=== PATIENT | female | born 1985 | race Hispanic/Latino ===

== ENCOUNTER 2018-09-25 22:47 | Emergency (ER) | payer BC, OTHER ==
[2018-09-26 05:00] VITALS: BP 112/81; PULSE 82
--- NOTE | 2018-09-26 08:47 | OBHP ---
Datetime: 09/25/2018 23:42 IP Adm Impression: Term, intrauterine IP Admit Plan: Observation/Evaluation; Discharge home Admit Comment, IP Provider: Pt is a 33 yo F EGA of 40 wks FREDDY 09/25/18 based on LMP 12/19/17 and 7wk U/S done 02/10/18. Pt is here for contractions since 7pm, 3 minutes apart, lasts 30 seconds. Last n ight had brown tinged toilet paper when wiping. Denies vaginal bleeding or LOF. Reports good mo vement. Denies fever, chills, headaches, blurry vision, SOB, chest pain, dizziness, diarrhea, constip ation, or dysuria. All other systems reviewed and negative Provider: Dr. Steiner PMHx: Denies Meds: PNV, antibiotic eye drops for chalazion TID unknown name for 1 month FMHx: Mom and Dad- HTN Allergies: NKDA SurgHx: Denies SOCHx: Denies EtOH, tobacco, or drug use OBGYN: No complications with , No DM or HTN in pregancy, Last pap 03/04/18 NILM No hx of STD's Labs: Rubella- unknown, ABO: O +, AB neg, GBS neg, Hep B neg, Hep C neg, HIV neg, RPR non reactive , GC/CHL neg, TDAP 07/16/18 Assessment Pt is a 33 yo F EGA of 40 wks FREDDY 09/25/18 based on LMP 12/19/17 and 7wk U/S done 02/10/18. Pt is here for contractions since 7pm. Plan: -Observe in [place] -Monitor contractions -Monitor heart tracing 140's, moderate variability, 15x15 accelerations, no decels -Monitor VS- BP 125/86 Case reveiwed and discussed with attending Rohini Melo PGY1 Addendum: I saw and examined patient at presentation. No evidence of labor at this time. heart quinten ng category 1. Patient discharged home with labor precautions. [place] Extremities - PN: Normal Lungs - PN: Normal Heart - PN: Normal HEENT - PN: Normal General - PN: Normal FHR - Baseline A Provider: 130 Comments, ACOG Physical Exam: GEN: NAD HEENT: NCAT, EOMI RESP: CTA, no wheezes, rales, or rhonchi CV: RRR, No m/r/g ABD: Gravid, Soft, nontender to palpation LE: no edema Monitor FHR tracing 130's, moderate variability, 15x15 accels, no decels IP Hx Assessment: The History has been Reviewed and is Current Vital Signs Provider: Reviewed; Within Normal Limits Vital Signs Provider Details: 125/86 IP Chief Complaint: Uterine contractions NICHD Variability Prov Fetus A: Moderate 6-25bpm NICHD Accel Fetus A IP Provider: 15X15 FHR Category Provider Fetus A: Category I
== END 2018-09-26 00:35 | disposition home or self-care (01) ==
LOC: H.EROB2 22:47
DX: O26.93 Pregnancy related conditions, unspecified, third trimester (principal); R10.2 Pelvic and perineal pain; O48.0 Post-term pregnancy; Z3A.40 40 weeks gestation of pregnancy

== ENCOUNTER 2018-09-26 14:51 | Inpatient (IN) | payer BC, OTHER ==
[2018-09-26 17:01] VITALS: BMI 28.3
[2018-09-26] MEDS ORDERED: Oxytocin 30 UNIT in NS 500 ml 30 UNITS/500 ML BAG IV ONE (17:24)
[2018-09-26] MEDS ORDERED: OXYTOCIN/0.9 % NS 20 UNIT/1,000 ML BAG IV ONE (17:25)
[2018-09-26] MEDS ORDERED: Lactated Ringer's 1,000 ML IV ONE ×2 (17:26)
[2018-09-26] MEDS ORDERED: Lactated Ringer's 1,000 ML IV SCH (17:30)
--- NOTE | 2018-09-26 17:54 | OBADHP ---
Datetime: 09/26/2018 15:38 Admit Comment, IP Provider: PNP: Dr. Steiner LMP 12/19/17 33 y/o @ 40.1wks w/FREDDY 09/25/2018 based on 7wk U/S c/o lower abdominal pain since yesterday. She was seen here for same complaints. Pelvic exam was performed and pt's cervix was closed. Today sh e reports pain has increased in intensity _ has occurred more frequently. She also reports some vagin al spotting. +FM _ nausea, but denies lof, f/c/vomitting, diarrhea, cp or sob. OBGYnhx: denies PMH: hordeolum Meds: on antibiotic eye drop; last taken yesterday, PNP Allergies: NKA Surghx: denies Sochx: denies EtoH, elicit drug use or cigarettes ROS: 12 points reviewed and are neg unless otherwise mentioned in HPI PE: HEENT: AC, NC, .4cm raised area of erythema and swelling on left upper eyelid Cardio: s1s2 RRR Lungs: cta bl Abd: soft, gravid, nontender, no rigidity, no guarding [place]: FHR- 140's Ext: nonedematous A/P: 33 y/o @ 40.1wks, clinically stable with ctx's. -Pelvic exam: patient 2 cm, 90%, -2, showing progression since last check yesterday. -Will allow pt to walk around and recheck in 1 hour. Patient seen and examined with Dr. Jatin Apodaca, PGY-1 -On re-examination patient was 3-4cm -Admit to unit The patient was seen with the resident I agree with the note FHR - Baseline A Provider: 140's Gestation - Est Wks by US: 40.1 Pool Provider: Negative IP Hx Assessment: The History has been Reviewed and is Current Vital Signs Provider: Reviewed; Within Normal Limits IP Chief Complaint: Uterine contractions NICHD Variability Prov Fetus A: Moderate 6-25bpm NICHD Accel Fetus A IP Provider: 15X15 FHR Category Provider Fetus A: Category I NICHD Decel Fetus A IP Provider: None Dilatation, Provider: 2 Effacement, Provider: 90 Station, Provider: -2 IP Adm Impression: Term, intrauterine IP Admit Plan: Observation/Evaluation Datetime: 09/25/2018 23:42 Extremities - PN: Normal Lungs - PN: Normal Heart - PN: Normal HEENT - PN: Normal General - PN: Normal Comments, ACOG Physical Exam: GEN: NAD HEENT: NCAT, EOMI RESP: CTA, no wheezes, rales, or rhonchi CV: RRR, No m/r/g ABD: Gravid, Soft, nontender to palpation LE: no edema Monitor FHR tracing 130's, moderate variability, 15x15 accels, no decels Vital Signs Provider Details: 125/86
[2018-09-26 18:13] LABS: BASO % 0.3 % (0.0-2.0); EOS % 0.1 % (0.0-4.0); HEMOGLOBIN 12.9 g/dL (12.0-16.0); LYMPH # 1.4 K/uL (1.0-4.3); LYMPH % 10.9 % (20.0-40.0); MEAN CELL VOLUME 89.2 fl (81.0-99.0); MEAN CORPUSCULAR HEMOGLOBIN 30.4 pg (27.0-31.0); MEAN CORPUSCULAR HGB CONC 34.1 g/dL (33.0-37.0); MEAN PLATELET VOLUME 8.8 fl (7.2-11.7); MONO # 0.9 K/uL (0.0-0.8); MONO % 6.9 % (0.0-10.0); NEUT # 10.5 K/uL (1.8-7.0); NEUT % 81.8 % (50.0-75.0); RBC 4.26 Mil/uL (3.80-5.20); RED CELL DISTRIBUTION WIDTH 13.4 % (11.5-14.5); WHITE BLOOD COUNT 12.8 K/uL (4.8-10.8)
[2018-09-26] MEDS ORDERED: Fentanyl/Bupivacaine HCl 250 ML EPI ONE (18:23)
[2018-09-27] MEDS ORDERED: Oxytocin 30 UNIT in NS 500 ml 30 UNITS/500 ML BAG IV ONE (04:30)
[2018-09-27] MEDS ORDERED: Oxycodone/Acetaminophen 5/325 mg Tab PO PRN ×2 (06:39→15:52)
[2018-09-27] MEDS ORDERED: Benzocaine/Menthol SPRAY TOP PRN ×2 (06:39→15:52)
--- NOTE | 2018-09-27 07:08 | OBDS ---
DELIVERY PERSONNEL Delivery Doctor: Natacha Steiner MD Ground [employer] Officer: Aby CARVER Anesthesiologist: Dr. Montanez Resident: Dr. Melo PGY1 MATERNAL INFORMATION Delivery Anesthesia: Epidural Medications in Delivery: Pitocin Placenta Cultured: No Maternal Complications: None Provider Comments: Delivered a live baby girl at 6:28 AM the baby was bulb suctioned on the perineum then transferred to the maternal chest the cord was clamped and cut 3 vessels noted cord blood was o btained and sent to the lab. The placenta was delivered at 6:30 AM intact. There were bilateral sul cus tears which were repaired with 2-0 Rapide the mother tolerated the procedure well the baby went t o the well baby nursery with Apgars of 9 9 LABOR SUMMARY EDC: 09/25/2018 00:00 No. Babies in Womb: 1 Attempted: No Labor Anesthesia: Epidural LABOR INFORMATION Reason for Induction: Not Applicable Oxytocin: Augmentation Group B Beta Strep: Negative Steroids Given: None Reason Steroids Not Administered: Not Applicable MEMBRANES Membranes Rupture Method: Artificial Amniotic Fluid Color: Clear Amniotic Fluid Amount: Small Amniotic Fluid Odor: Normal STAGES OF LABOR Stage 3 hrs: 0 Stage 3 min: 2 VAGINAL DELIVERY Episiotomy: None Laceration Extension: First Degree Laceration Type: Sulcus Laceration Repair: Yes Initial Vag Sponge Count: 15 Final Vag Sponge Count: 15 Initial Vag Sharps Count: 2 Final Vag Sharps Count: 2 Sponge Count Correct: Yes Sharps Count Correct: Yes BABY A INFORMATION Infant Delivery Date/Time: 09/27/2018 06:28 Method of Delivery: Vaginal Born in Route : No : N/A Forceps: N/A Vacuum Extraction: N/A Shoulder Dystocia : No SHOULDER DYSTOCIA BABY A Delivery Date/Time: 09/27/2018 06:28 PRESENTATION/POSITION BABY A Presentation: Cephalic Cephalic Presentation: Vertex Breech Presentation: N/A PLACENTA INFORMATION BABY A Placenta Delivery Time : 09/27/2018 06:30 Placenta Method of Delivery: Spontaneous Placenta Status: Delivered SCORES BABY A Heart Rate 1 min: >100 bpm Resp Effort 1 min: Good Cry Reflex Irritability 1 min: Cough or Sneeze or Pulls Away Muscle Tone 1 min: Active Motion Color 1 min: Body Toy[place], Extremities Blue Resuscitation Effort 1 min: N/A SCORE 1 MIN: 9 Heart Rate 5 min: >100 bpm Resp Effort 5 min: Good Cry Reflex Irritability 5 min: Cough or Sneeze or Pulls Away Muscle Tone 5 min: Active Motion Color 5 min: Body Toyah, Extremities Blue Resuscitation Effort 5 min: N/A SCORE 5 MIN: 9 INFANT INFORMATION BABY A Gestational Age at Delivery: 40.2 Gestational Status: Term Outcome : Liveborn Condition : Stable Infant Sex: Female IDENTIFICATION/MEDS BABY A ID Band Location: Left Leg; Left Arm CORD INFORMATION BABY A No. Cord Vessels: 3 Nuchal Cord : Around Neck x1, Loose Nuchal Cord Other: N/A True Knot: N/A Infant Cord pH Baby Arterial: N/A Infant Cord pH Baby Venous: N/A Cord Blood Taken: Yes Banking/Donate Info: N/A Suction: None ASSESSMENT BABY A Complications: Meconium Physical Findings at Delivery: Within Normal Limits Infant Respirations: Appears Normal Chief Lending Officer/ALS Called : No Transferred To: Remains with Mother
[2018-09-27] MEDS ORDERED: Prenatal Multivit/Folic Acid/Iron Tab PO SCH (09:00)
[2018-09-28 07:20] LABS: BASO # 0.1 K/uL (0.0-0.2); BASO % 0.4 % (0.0-2.0); EOS # 0.1 K/uL (0.0-0.7); EOS % 0.7 % (0.0-4.0); HEMOGLOBIN 10.9 g/dL (12.0-16.0); LYMPH # 2.1 K/uL (1.0-4.3); LYMPH % 13.1 % (20.0-40.0); MEAN CELL VOLUME 90.3 fl (81.0-99.0); MEAN CORPUSCULAR HEMOGLOBIN 30.8 pg (27.0-31.0); MEAN CORPUSCULAR HGB CONC 34.2 g/dL (33.0-37.0); MEAN PLATELET VOLUME 8.5 fl (7.2-11.7); MONO % 6.1 % (0.0-10.0); NEUT % 79.7 % (50.0-75.0); RBC 3.52 Mil/uL (3.80-5.20); RED CELL DISTRIBUTION WIDTH 13.7 % (11.5-14.5); WHITE BLOOD COUNT 16.3 K/uL (4.8-10.8)
[2018-09-28] MEDS: Prenatal Multivit/Folic Acid/Iron Tab PO SCH (09:10)
--- NOTE | 2018-09-28 12:05 | OBPPN ---
Datetime: 09/28/2018 12:02 PP Pain Prov: Within normal limits PP Nausea Prov: Denies PP Flatus Prov: Yes PP Breasts Prov: Not Done PP Heart Prov: Normal PP Lungs Prov: Normal PP Abdomen/Uterus Prov: Normal PP Lochia Prov: Not Done PP Vulva/Perineum Prov: Not Done PP CVA Tenderness Prov: Normal PP Extremities Prov: Normal PP C/S Incision Prov: Normal PP Impression Prov: Normal progression PP Plan Prov: Continue present management PP Progress Note Prov: Patient doing well ambulating tolerating diet pain well controlled reports mi nimal lochia Vital signs stable afebrile Uterus firm below the umbilicus Extremities no Homans day #1 Ambulate, Motrin, regular diet Anticipate discharge in a.m. Vital Signs Provider PP: Reviewed
[2018-09-29] MEDS: Prenatal Multivit/Folic Acid/Iron Tab PO SCH (08:15)
--- NOTE | 2018-09-29 10:51 | OBDCSUM ---
Datetime: 09/29/2018 10:47 Discharged to, Provider: Home Follow up at, Provider: OB Disch Instr Activity: Normal activity Disch Instr Diet: Regular Discharge Instructions, Provider: Routine instructions given Discharge Diagnosis, Provider: Term Delivered Discharge Time: 09/29/2018 10:47 Follow up in weeks, Provider: 6 wks Disch Referrals: None Contraception discussed, Prov: Yes Disch Activity Restrictions: No sexual activity; Nothing in vagina - Arma, tampons, douche
--- NOTE | 2018-09-29 10:51 | OBPPN ---
Datetime: 09/29/2018 10:46 PP Pain Prov: Within normal limits PP Nausea Prov: Denies PP Flatus Prov: Yes PP Breasts Prov: Normal PP Heart Prov: Normal PP Lungs Prov: Normal PP Abdomen/Uterus Prov: Normal PP Lochia Prov: Normal PP Vulva/Perineum Prov: Normal PP CVA Tenderness Prov: Normal PP Extremities Prov: Normal PP Comments Phys Exam Prov: Fundus firm under umbilicus PP Impression Prov: Normal progression PP Plan Prov: Continue present management; Discharge PP Progress Note Prov: Patient denies CP, no SOB, no N/V, tolerating PO diet, ambulating/voiding wel l, mild lochia, abdominal pain tolerable with meds A/P PPD #2 1. Discharge home 2. Discharge instructions reviewed IP PP Procedures: None Vital Signs Provider PP: Reviewed; Within Normal Limits
[2018-09-29 16:08] VITALS: BP 132/83; PULSE 98; RESP 20; TEMP 97.5; O2SAT 99
== END 2018-09-29 11:55 | disposition home or self-care (01) | DRG 807 ==
LOC: H.EROB2 14:51 → H.L&D 17:23 → H.OB/GYN 09-27 09:45
PROVIDERS: ADMIT Obstetrics & Gynecology Gynecology; ATTEND Obstetrics & Gynecology Gynecology
PROC: 4A1HXCZ Monitoring of Products of Conception, Cardiac Rate, External Approach (ICD-10-PCS; 2018-09-26)
PROC: 10E0XZZ Delivery of Products of Conception, External Approach (ICD-10-PCS; principal; 2018-09-27)
PROC: 0HQ9XZZ Repair Perineum Skin, External Approach (ICD-10-PCS; 2018-09-27)
DX: O69.81X0 Labor and delivery complicated by cord around neck, without compression, not applicable or unspecified (principal); Z37.0 Single live birth; O77.0 Labor and delivery complicated by meconium in amniotic fluid; Z3A.40 40 weeks gestation of pregnancy; O70.0 First degree perineal laceration during delivery